=== PATIENT | female | born 1935 | race Caucasian/White ===

== ENCOUNTER → 2024-02-07 07:53 | Outpatient (REF) | payer MEDICARE, OTHER, SELFPAY | LOC: DHCBC/DCA 07:53 | PROVIDERS: ATTENDING PHYSICIAN Internal Medicine Cardiovascular Disease; FAMILY PHYSICIAN Internal Medicine | DX: R07.2 Precordial pain (principal) | CPT/HCPCS: 78452; 93017; A9500; J2785 ==

== ENCOUNTER → 2024-02-10 11:09 | Outpatient (REF) | payer MEDICARE, OTHER, SELFPAY | LOC: HWRCS 11:09 | PROVIDERS: ATTENDING PHYSICIAN Internal Medicine Cardiovascular Disease; FAMILY PHYSICIAN Internal Medicine | DX: R01.1 Cardiac murmur, unspecified (principal) | CPT/HCPCS: 93306 ==

== ENCOUNTER → 2025-02-06 14:00 | Outpatient (REF) | payer MEDICARE, OTHER, SELFPAY | LOC: RCS 14:00 | PROVIDERS: ATTENDING PHYSICIAN Student in an Organized Health Care Education/Training Program; FAMILY PHYSICIAN Internal Medicine | DX: I35.0 Nonrheumatic aortic (valve) stenosis (principal) | CPT/HCPCS: 93306 ==

== ENCOUNTER 2025-06-18 16:38 | Emergency (ER) | payer MEDICARE, OTHER, SELFPAY ==
[2025-06-18 16:41] VITALS: BP 102/76
--- NOTE | 2025-06-18 19:21 | ED.MUSCINJ ---
HPI-Injury
General
Chief Complaint: Musculo-Skeletal Complaint
Source: patient
Exam Limitations: none
Time Seen by Provider: 06/18/25 17:58
History of Present Illness-Injury
Initial Injury comments:
89-year-old female presents complaining of throbbing pain that radiates from the right buttock down through her knee into the top of her foot on the right side. This has been worsening over the past week no associated back pain or fever. No known
injury. She denies swelling or chest pain or shortness of breath. Seen by the family doctor and was advised to take Tylenol. She has not had any significant relief from this. No other complaints at this time
Phy Exam
Physical Exam
Physical Exam:
General: Well-appearing female in no acute respiratory distress
HEENT: Normal cephalic atraumatic
Musculoskeletal exam: No significant reproducible tenderness about palpation of the right hip knee or leg no deformities.
Vascular 2+ DP pulse right foot with the foot being warm to the touch with a good color
Neurologic: Positive straight leg raise reproducing symptoms from the right buttock down the leg. Bilateral patellar 2+. Strength bilaterally
Injury Course
Orders/Labs/Results
Orders:
Orders
06/18/25 18:14
Venous Doppler Lwr Ext Rt [US Periph Venous LOWER Ext RT] Urgent
Comment:
Reason For Exam: pain
MDM/Problems Addressed
Differential Diagnosis Includes:
Atraumatic pain to the right leg. Consider radiculopathy versus muscle strain versus DVT. No evidence of ischemic limb given good pulse distally with good temperature.
Venous ultrasound was ordered of the leg which was negative for deep
Suspect radiculopathy. Will treat with steroid and gabapentin. She will follow-up with her family doctor. Stable for discharge
*Pulse Oximetry
SaO2: 100
Oxygen Mode of Delivery: Room air
Patient hypoxic: no
*Critical Care Note
Total Time (30-74mins, 75-104mins- exclusive of procedures): Not Applicable
ED Attending Note
-
Portions of this chart may have been created with voice recognition software.� Occasional wrong word or��sound alike� substitutions may have occurred due to the inherent limitations of voice recognition software.
Discharge Plan
Departure
Patient Disposition: Home (Routine Discharge)
Date of Disposition: 06/18/25
Time of Disposition: 19:22
Patient with high blood pressure during this ER visit?: No
Discharge Problem:
Acute lumbar radiculopathy
Instructions: Muscle and Bone Pain (DC)
Prescriptions:
New
gabapentin 100 mg capsule
100 mg PO TID Qty: 30 0RF
prednisone 10 mg Tablet
See Rx Instructions .ROUTE .COMPLEX Qty: 30 0RF
Rx Instructions:
Take By Mouth:
40 mg daily x3 days, 30 mg daily x3 days,
20 mg daily x3 days, 10 mg daily x3 days.
Referrals:
Hermes Green, DO [Non-Admitting Privileges, Orthopedics]
Michelle Vasquez MD [Family Provider]
Activity Restrictions/Additional Instructions:
Use medicine as prescribed. Follow-up with back pain specialist for further evaluation. Return if needed otherwise
Interventions
Interventions:
*Risk Screen - Suicide Last Done: 06/18/25 16:41
*General Assessment Last Done: 06/18/25 18:00
*Neglect/Abuse Screening Last Done: 06/18/25 16:49
*ED COVID-19 Vaccine History Last Done: 06/18/25 18:00
*ED Influenza Vaccine History Last Done: 06/18/25 18:00
ED-Musculoskeletal Assessment Last Done: 06/18/25 18:00
Discharge Date and Time
Print Language: TURKISH
[2025-06-18 19:36] VITALS: BP 171/59
== END 2025-06-18 19:36 | disposition home or self-care (01) ==
LOC: EMR 16:38
PROVIDERS: EMERGENCY PHYSICIAN Emergency Medicine; FAMILY PHYSICIAN Internal Medicine
DX: M54.16 Radiculopathy, lumbar region (principal); M79.604 Pain in right leg
CPT/HCPCS: 99284; 93971